=== PATIENT | male | born 1995 | race Hispanic/Latino ===

== ENCOUNTER 2022-12-07 13:50 | Emergency (ER) | payer OTHER ==
[~2022-12-07] VITALS: Ht 177.8 cm; Wt 128.0 kg
[2022-12-07] MEDS ORDERED: AMOX TR-K CLV1 EAC1 PO (16:14)
[2022-12-07] MEDS ORDERED: ADVIL200 MG PO (16:15)
[2022-12-07 17:04] VITALS: BP 136/85
== END 2022-12-07 17:06 | disposition home or self-care (01) ==
LOC: ED 13:50
DX: K04.7 Periapical abscess without sinus (principal); I10 Essential (primary) hypertension; Z79.899 Other long term (current) drug therapy
CPT/HCPCS: 99282